=== PATIENT | female | born 1940 | race Caucasian/White ===

== ENCOUNTER 2018-11-18 07:49 | Day surgery (SDC) | payer MEDICARE, OTHER ==
[~2018-11-18 07:49] MED LIST: Bupivacaine 25%/EPINEPHrine/PF 30 ML ONE; Dexamethasone 4 MG/ML 5 ML MDV ONE; Ondansetron 4 MG/2 ML SDV ONE; Propofol 200 MG/20 ML SDV ONE; fentaNYL 100 MCG/2 ML SDV ONE
[2018-11-18] MEDS ORDERED: Bupivacaine 0.25%/EPINEPHrine 1:200,000 10 ML SDV INJECT ONE (08:00)
[2018-11-18] MEDS ORDERED: Lactated Ringers 1,000 ML IV SCH (08:00)
--- NOTE | 2018-11-18 08:51 | PCM.PREANE ---
Preanesthetic Assessment - Anesthesia/Transfusion/Family Hx Anesthesia History: Prior Anesthesia Without Reaction Family History of Anesthesia Reaction: No Transfusion History: No Prior Transfusion(s) Intubation History: Unknown - Review of Systems General: No Symptoms Pulmonary: No Symptoms Cardiovascular: No Symptoms Gastrointestinal: No Symptoms Neurological: No Symptoms Other: Reports: None - Physical Assessment Height: 1.55 m Weight: 71.214 kg ASA Class: 3 Mental Status: Alert & Oriented x3 Airway Class: Mallampati = 2 Dentition: Reports: Partial (upper) Thyro-Mental Finger Breadths: 3 Mouth Opening Finger Breadths: 2 ROM/Head Extension: Limited/Partial Lungs: Clear to Auscultation, Normal Respiratory Effort Cardiovascular: Irregular Rhythm - Allergies Allergies/Adverse Reactions: Allergies Allergy/AdvReac Type Severity Reaction Status Date / Time cephalexin [From Keflex] Allergy Itching Verified 11/13/18 11:30 doxycycline Allergy Itching Verified 11/13/18 11:30 Penicillins Allergy Itching Verified 11/13/18 11:30 Sulfa (Sulfonamide Allergy Stomach Verified 11/13/18 11:30 Antibiotics) Upset Tetracyclines Allergy Itching Verified 11/13/18 11:30 - Blood Blood Available: No - Anesthesia Plan Pre-Op Medication Ordered: None - Acknowledgements Anesthesia Type Planned: MAC Pt an Appropriate Candidate for the Planned Anesthesia: Yes Alternatives and Risks of Anesthesia Discussed w Pt/Guardian: Yes Pt/Guardian Understands and Agrees with Anesthesia Plan: Yes PreAnesthesia Questionnaire HEENT History: Reports: Allergic Rhinitis, Cataract Other HEENT History: top partial, reading glasses Cardiovascular History: Reports: Afib, Heart Failure, Heart Murmur (mitral valve rugurgitation, s/p aortic valve replacemant), High Cholesterol, Hypertension, Other (See Below) (h/o amaurosis fugax, h/o CHF) Respiratory History: Reports: Asthma, SOB (can't walk one block or one flight of stairs) Other Respiratory History: allergy induced asthma, does not have prescribed inhaler Gastrointestinal History: Reports: Chronic Diarrhea, GERD, Other (See Below) Other Gastrointestinal History: hx colitis Genitourinary History: Reports: Other (See Below) (chronic kidney insufficiency) 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: Musculoskeletal History: Reports: Back Pain, Chronic, Fracture, Gout, Neck Pain , Chronic, Osteoarthritis Other Musculoskeletal History: hx fx wrist Neurological History: Reports: Headaches, Chronic, Vertigo Psychiatric History: Reports: None Endocrine/Metabolic History: Reports: Hypothyroidism Oncologic (Cancer) History: Reports: None Dermatologic History: Reports: None - Infectious Disease History Infectious Disease History: Reports: None - Past Surgical History Head Surgeries/Procedures: Reports: None HEENT Surgical History: Reports: Tonsillectomy Cardiovascular Surgical History: Reports: Valve Replacement (aortic), Other ( See Below) (myotomy for congenital hypertrophic ventricular septum) Female Surgical History: Reports: Breast Biopsy, Hysterectomy Other Female Surgeries/Procedures: malia breast lumpectomy Oncologic Surgical History: Reports: Biopsy of Breast Dermatological Surgical History: Reports: Other (See Below) - SUBSTANCE USE Smoking Status *Q: Never Smoker Recreational Drug Use History: No - HOME MEDS Home Medications: Home Meds Cyanocobalamin (Vitamin B-12) [Vitamin B-12] 500 mcg PO DAILY 02/03/15 [History] Furosemide 20 mg PO ASDIRECTED 02/03/15 [History] Levothyroxine Sodium [Levoxyl] 37.5 mcg PO DAILY 02/03/15 [History] Magnesium Oxide 400 mg PO DAILY 02/03/15 [History] Metoprolol Tartrate 100 mg PO BID 02/03/15 [History] Potassium Bicarbonate [Klor-Con EF] 25 meq PO DAILY 02/03/15 [History] Pyridoxine HCl [Vitamin B-6] 100 mg PO DAILY 02/03/15 [History] Simvastatin [Zocor] 40 mg PO BEDTIME 02/03/15 [History] diphenhydrAMINE [Benadryl] 25 mg PO Q4H PRN 02/03/15 [History] hydrOXYzine HCl [hydrOXYzine] 25 mg PO BEDTIME PRN 02/03/15 [History] Allopurinol [Zyloprim] 300 mg PO DAILY 07/17/16 [History] Diltiazem HCl [Cartia Xt] 180 mg PO DAILY 11/13/18 [History] Osteo Advance 1 tab PO BID 11/13/18 [History] Warfarin [Coumadin] 2.5 mg PO ASDIRECTED 11/13/18 [History] - CURRENT (IN HOUSE) MEDS Current Meds: Current Medications Lactated Ringer's (Ringers, Lactated) 1,000 mls @ 125 mls/hr IV ASDIRECTED FANY Discontinued Medications Bupivacaine HCl/Epinephrine Bitart (Marcaine 0.25%/Epinephrine 1:200,000) 10 ml INJECT ONETIME ONE Stop: 11/18/18 08:01 Dexamethasone (Dexamethasone) Confirm Administered Dose 20 mg .ROUTE .STK-MED ONE Stop: 11/18/18 07:10 Fentanyl (Sublimaze) Confirm Administered Dose 100 mcg .ROUTE .STK-MED ONE Stop: 11/18/18 07:11 Lidocaine HCl (Xylocaine-Mpf 1%) Confirm Administered Dose 5 mls @ as directed .ROUTE .STK-MED ONE Stop: 11/18/18 07:10 Bupivacaine HCl/Epinephrine Bitart (Sensorc Mpf 0.25%-Epi 1:[id number]) Confirm Administered Dose 30 mls @ as directed .ROUTE .STK-MED ONE Stop: 11/18/18 07:39 Ondansetron HCl (Zofran) Confirm Administered Dose 4 mg .ROUTE .STK-MED ONE Stop: 11/18/18 07:10 Propofol (Diprivan 20 Ml) Confirm Administered Dose 200 mg .ROUTE .STK-MED ONE Stop: 11/18/18 07:11
[2018-11-18] MEDS ORDERED: Phenylephrine/Normal Saline 100 MCG/ML 10 ML Syringe ONE (09:31)
[2018-11-18 11:04] VITALS: BP 118/79
--- NOTE | 2018-11-18 11:18 | PCM.POSTAN ---
POST ANESTHESIA ASSESSMENT - MENTAL STATUS Mental Status: Alert (no anesthesia problems), Oriented - RESPIRATORY Respiratory Status: Respiratory Rate WNL, Airway Patent, O2 Saturation Stable - CARDIOVASCULAR CV Status: Pulse Rate WNL, Blood Pressure Stable - GASTROINTESTINAL GI Status: No Symptoms - POST OP HYDRATION Hydration Status: Adequate & Stable
--- NOTE | 2018-11-18 11:19 | PCM48HPAN ---
Post Anesthesia Note - EVALUATION WITHIN 48HRS OF ANESTHETIC Vital Signs in Normal Range: Yes Patient Participated in Evaluation: Yes Respiratory Function Stable: Yes Airway Patent: Yes Cardiovascular Function Stable: Yes Hydration Status Stable: Yes Pain Control Satisfactory: Yes Nausea and Vomiting Control Satisfactory: Yes Mental Status Recovered: Yes Resp Rate: 15 - COMMENTS/OBSERVATIONS Free Text/Narrative:: no anesthesia problems
--- NOTE | 2018-11-18 11:37 | PCM.OPNOTE ---
- General Post-Op/Procedure Note Date of Surgery/Procedure: 11/18/18 Operative Procedure(s): excision of right ear lesion and underlying cartilage 1.5cm total excision with frozen sections. Primary simple closure. Pre Op Diagnosis: right ear lesion Post-Op Diagnosis: right ear condrodermatitis nodularis helicus Anesthesia Technique: Local, MAC Primary Surgeon: Xochilt Mcfarland Lamp Mechanic: Karon Khan Complications: None Condition: Good
--- NOTE | 2018-11-23 13:15 | OR ---
SURGEON: JULIAN CARDOZA MD DATE OF PROCEDURE: 11/18/2018 PREOPERATIVE DIAGNOSIS: Right ear lesion. POSTOPERATIVE DIAGNOSIS: Right ear chondrodermatitis nodularis helicis. PROCEDURE: Excision of right ear lesion and underlying cartilage, 1.5 cm total excision with frozen sections. Primary simple closure. PRICE LISTER: LISA Camacho ANESTHESIA: Local MAC. INDICATIONS: Ms. Aleman is an 78-year-old female seen today in evaluation for a right ear lesion. Unfortunately, it continues to cause her significant pain. She does like to sleep on the right and is unable to do so because of pain. Risks and benefits of excision were discussed with her with frozen sections and she was in agreement to proceed. This was due to the differential diagnosis of skin cancer. Risks and benefits were discussed and informed consent was obtained. All questions were answered. PROCEDURE IN DETAIL: After informed consent was obtained and placed on the chart, the patient was brought to the operating theater and laid in supine position. After adequate local MAC anesthesia was obtained, the area was prepped and draped, a time-out was completed to confirm side and site. An elliptical wound excision of the right ear chondrodermatitis nodularis helicis was completed including the underlying cartilage. Meticulous hemostasis was obtained and the lesion was sent with marking stitch at 12 o'clock for frozen sections. Frozen sections returned as chondrodermatitis nodularis helicis most likely. Meticulous hemostasis was obtained and 5-0 chromic stitches were used to close the skin in interrupted fashion for a total length of 1.5 cm. The patient tolerated this well. All counts and needles were correct at the end of the case. FOLLOWUP INSTRUCTIONS: The patient will see us in clinic in 10 to 14 days, sooner with any problems, questions, or concerns. HEGGTNUPUR / SACHINL /[id number]
== END 2018-11-18 11:00 | disposition home or self-care (01) ==
LOC: MW.SDS 07:49
PROVIDERS: ATTEND Plastic Surgery
DX: H61.001 Unspecified perichondritis of right external ear (principal); I13.0 Hypertensive heart and chronic kidney disease with heart failure and stage 1 through stage 4 chronic kidney disease, or unspecified chronic kidney disease; I50.9 Heart failure, unspecified; N18.9 Chronic kidney disease, unspecified; J45.998 Other asthma; E78.00 Pure hypercholesterolemia, unspecified; E03.9 Hypothyroidism, unspecified; I48.91 Unspecified atrial fibrillation; Z79.01 Long term (current) use of anticoagulants; Z79.899 Other long term (current) drug therapy; Z88.1 Allergy status to other antibiotic agents; Z88.2 Allergy status to sulfonamides; Z88.0 Allergy status to penicillin
CPT/HCPCS: 11442; J1100; J2370; J2405; J2704; J3010; J7120; 00300; 88305

== ENCOUNTER 2021-10-29 10:44 | Emergency (ER) | payer MEDICARE, OTHER ==
[2021-10-29] MEDS ORDERED: Sodium Chloride 0.9% 10 ML Syringe FLUSH PRN (11:54)
[2021-10-29] MEDS ORDERED: Sodium Chloride 0.9% 2.5 ML Syringe FLUSH PRN (11:54)
[2021-10-29] MEDS ORDERED: Ketorolac 30 MG/ML SDV IVPUSH ONE (11:56)
[2021-10-29 12:38] LABS: CORONAVIRUS COVID-19 NAA NEGATIVE (NEGATIVE); INFLUENZA A NAA NEGATIVE (NEGATIVE); INFLUENZA B NAA NEGATIVE (NEGATIVE)
[2021-10-29 12:54] LABS: BLOOD UREA NITROGEN,BUN 24 mg/dL (7.0-18.0); CHLORIDE,CL 102 mmol/L (98-107); GLUCOSE RANDOM 101 mg/dL (74-106); POTASSIUM,K 3.8 mmol/L (3.5-5.1); SODIUM,NA 143 mmol/L (136-145)
--- NOTE | 2021-10-29 14:52 | CT ---
INDICATION: Shortness of breath. Pleuritic chest pain. TECHNIQUE: CT chest PE was acquired with 100 cc Isovue 370 IV contrast. COMPARISON: None. FINDINGS: Heart and vasculature: Contrast opacification of the pulmonary arterial tree is adequate. No sign of pulmonary embolism. Heart size is normal. Thoracic aorta and pulmonary artery are normal in caliber. Lungs and pleural: No suspicious nodules or infiltrates. Mild emphysema and bronchiectasis. No pleural effusions, pleural thickening, or pneumothorax. Lymph nodes/mediastinum: No mediastinal, hilar, or axillary adenopathy. Chest wall: No masses. Upper abdomen: No acute or significant findings. Bones: Unremarkable for age. IMPRESSION: No acute or specific finding to explain shortness of breath or pleuritic chest pain. Specifically no pulmonary embolism or pneumonia. Please note that all CT scans at this facility use dose modulation, iterative reconstruction, and/or weight-based dosing when appropriate to reduce radiation dose to as low as reasonably achievable. Dictated by Rodrigo Barber MD @ 10/29/2021 2:50:50 PM (Electronically Signed)
--- NOTE | 2021-10-29 15:11 | EDM.PDOC ---
ED HPI GENERAL MEDICAL PROBLEM - General Chief Complaint: General Stated Complaint: PAIN IN RIGHT RIB AREA Time Seen by Provider: 10/29/21 10:59 Source of Information: Reports: Patient History Limitations: Reports: No Limitations - History of Present Illness INITIAL COMMENTS - FREE TEXT/NARRATIVE: HISTORY AND PHYSICAL: History of present illness: Patient is an 81-year-old female who presents emergency room today with concern of right rib pain x2 days. Patient states that she once had a diagnosis of pleurisy and states that her pain today feels similar to when she had pleurisy. Patient states that it does worsen if she takes a big deep breath then. Patient states she has not had any falls or injuries or denies any other associated symptoms. States that she has been taking Tylenol with some relief of symptoms. Patient denies fever, chills, chest pain, shortness of breath, or cough. Denies headache, neck stiff ness, change in vision, syncope, or near syncope. Denies nausea, vomiting, abdominal pain, diarrhea, constipation, or dysuria. Has not noted any blood in urine or stool. Patient has been eating and drinking appropriately. Review of systems: As per history of present illness and below otherwise all systems reviewed and negative. Past medical history: As per history of present illness and as reviewed below otherwise noncontributory. Surgical history: As per history of present illness and as reviewed below otherwise noncontributory. Social history: See social history for further information Family history: As per history of present illness and as reviewed below otherwise noncontributory. Physical exam: General: Patient is alert, oriented, and in no acute distress. Patient sitting comfortably on exam table. Vitals stable and reviewed by me. HEENT: Atraumatic, normocephalic, pupils equal and reactive bilaterally, negative for conjunctival pallor or scleral icterus, mucous membranes moist, throat clear, neck supple, nontender, trachea midline. No drooling or trismus noted. No meningeal signs. No hot potato voice noted. Lungs: Clear to auscultation, breath sounds equal bilaterally, chest nontender. Heart: S1S2, regular rate and rhythm without overt murmur Abdomen: Soft, nondistended, nontender. Negative for masses or hepatosplenomegaly. Negative for costovertebral tenderness. Pelvis: Stable nontender. Genitourinary: Deferred. Rectal: Deferred. Skin: Intact, warm, dry. No lesions or rashes noted. Extremities/musculoskeletal: Pain to palpation of the right-sided rib cage extending under her right axillary area into the right flank with no ecchymosis, rash, lesion. Otherwise, atraumatic, negative for cords or calf pain. Neurovascular unremarkable. Neuro: Awake, alert, oriented. Cranial nerves II through XII unremarkable. Cerebellum unremarkable. Motor and sensory unremarkable throughout. Exam nonfocal. Medical Decision Making: Patient is an 81-year-old female who presents emergency room today with concern of right-sided rib pain x2 days that she describes as "lung pain". Upon arrival to the ED, patient is vitally stable and well-appearing on exam. Patient is noted to have tenderness to palpation of her right sided rib cage extending from her axillary area to around the flank without any other physical exam findings. Exam is otherwise unremarkable. Will obtain cardiac evaluation, angiography of chest for concern of possible pulmonary embolism. CBC mild derangements are unremarkable. CMP does show mild elevation of BUN and creatinine at 24 and 1.4 respectively. Troponin negative. Covid and influenza negative. Angiography of the chest shows no acute or specific findings to explain shortness of breath or pleuritic chest pain. Specifically no pulmonary embolism or pneumonia. Reevaluation of patient, she does remain vitally stable and has improvement of her symptoms with therapeutics given today in the emergency room. Strict return precautions thoroughly discussed with patient. Discussed importance for follow- up with a primary care provider. Voices understanding and is agreeable to plan of care. Denies any further questions or concerns at this time. Diagnostics: EKG, CBC, CMP, Trop, COVID/Flu, Ang CT Chest Therapeutics: Toradol Prescription: None Impression: Right rib pain Plan: 1. You can take Tylenol as directed for pain and discomfort. 2. Follow-up with your primary care provider in the next 1-3 days as discussed. Return to the ED as needed and as discussed. Definitive disposition and diagnosis as appropriate pending reevaluation and review of above. right rib Pain Score (Numeric/FACES): 10 - Related Data Allergies Allergy/AdvReac Type Severity Reaction Status Date / Time cephalexin [From Keflex] Allergy Itching Verified 10/29/21 11:06 doxycycline Allergy Itching Verified 10/29/21 11:06 Penicillins Allergy Itching Verified 10/29/21 11:06 Sulfa (Sulfonamide Allergy Stomach Verified 10/29/21 11:06 Antibiotics) Upset Tetracyclines Allergy Itching Verified 10/29/21 11:06 Home Meds: Home Meds Cyanocobalamin (Vitamin B-12) [Vitamin B-12] 500 mcg PO DAILY 02/03/15 [History] Furosemide 20 mg PO ASDIRECTED 02/03/15 [History] Levothyroxine Sodium [Levoxyl] 37.5 mcg PO DAILY 02/03/15 [History] Magnesium Oxide 400 mg PO DAILY 02/03/15 [History] Metoprolol Tartrate 100 mg PO BID 02/03/15 [History] Potassium Bicarbonate [Klor-Con EF] 25 meq PO DAILY 02/03/15 [History] Pyridoxine HCl (Vitamin B6) [Vitamin B-6] 100 mg PO DAILY 02/03/15 [History] Simvastatin [Zocor] 40 mg PO BEDTIME 02/03/15 [History] diphenhydrAMINE [Benadryl] 25 mg PO Q4H PRN 02/03/15 [History] hydrOXYzine HCL [hydrOXYzine] 25 mg PO BEDTIME PRN 02/03/15 [History] Allopurinol [Zyloprim] 300 mg PO DAILY 07/17/16 [History] Osteo Advance 1 tab PO BID 11/13/18 [History] Warfarin [Coumadin] 2.5 mg PO ASDIRECTED 11/13/18 [History] dilTIAZem HCL [Cartia Xt] 180 mg PO DAILY 11/13/18 [History] Past Medical History HEENT History: Reports: Allergic Rhinitis, Cataract Other HEENT History: top partial, reading glasses Cardiovascular History: Reports: Afib, Heart Failure, Heart Murmur, High Cholesterol, Hypertension, Other (See Below) Respiratory History: Reports: Asthma, SOB Other Respiratory History: allergy induced asthma, does not have prescribed inhaler Gastrointestinal History: Reports: Chronic Diarrhea, GERD, Other (See Below) Other Gastrointestinal History: hx colitis Genitourinary History: Reports: Other (See Below) 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: Musculoskeletal History: Reports: Back Pain, Chronic, Fracture, Gout, Neck Pain, Chronic, Osteoarthritis Other Musculoskeletal History: hx fx wrist Neurological History: Reports: Headaches, Chronic, Vertigo Psychiatric History: Reports: None Endocrine/Metabolic History: Reports: Hypothyroidism Oncologic (Cancer) History: Reports: None Dermatologic History: Reports: None - Infectious Disease History Infectious Disease History: Reports: None - Past Surgical History Head Surgeries/Procedures: Reports: None HEENT Surgical History: Reports: Tonsillectomy Cardiovascular Surgical History: Reports: Valve Replacement, Other (See Below) Female Surgical History: Reports: Breast Biopsy, Hysterectomy Other Female Surgeries/Procedures: malia breast lumpectomy Oncologic Surgical History: Reports: Biopsy of Breast Dermatological Surgical History: Reports: Other (See Below) Social & Family History - Family History Family Medical History: No Pertinent Family History - Caffeine Use Caffeine Use: Reports: None - Recreational Drug Use Recreational Drug Use: No ED ROS GENERAL - Review of Systems Review Of Systems: Comprehensive ROS is negative, except as noted in HPI. ED EXAM, GENERAL - Physical Exam Exam: See Below (see dictation) Course - Vital Signs Last Recorded V/S: Last Vital Signs Temp 97.9 F 10/29/21 15:19 Pulse 78 10/29/21 15:19 Resp 17 10/29/21 15:19 BP 159/78 H 10/29/21 15:19 Pulse Ox 96 10/29/21 15:19 - Orders/Labs/Meds Orders: Active Orders 24 hr Category Date Time Status Saline Lock Insert [OM.PC] Stat Oth 10/29/21 11:54 Ordered Labs: Laboratory Tests 10/29/21 10/29/21 10/29/21 Range/Units 11:45 12:05 12:05 WBC 9.37 (4.0-11.0) K/uL RBC 4.45 (4.30-5.90) M/uL Hgb 13.7 (12.0-16.0) g/dL Hct 41.7 (36.0-46.0) % MCV 93.7 (80.0-98.0) fL MCH 30.8 (27.0-32.0) pg MCHC 32.9 (31.0-37.0) g/dL RDW Std Deviation 49.2 (28.0-62.0) fl RDW Coeff of Haris 15 (11.0-15.0) % Plt Count 217 (150-400) K/uL MPV 10.20 (7.40-12.00) fL Neut % (Auto) 66.6 (48.0-80.0) % Lymph % (Auto) 22.3 (16.0-40.0) % [place] % (Auto) 7.2 (0.0-15.0) % Eos % (Auto) 3.5 (0.0-7.0) % Baso % (Auto) 0.4 (0.0-1.5) % Neut # (Auto) 6.2 H (1.4-5.7) K/uL Lymph # (Auto) 2.1 (0.6-2.4) K/uL [place] # (Auto) 0.7 (0.0-0.8) K/uL Eos # (Auto) 0.3 (0.0-0.7) K/uL Baso # (Auto) 0.0 (0.0-0.1) K/uL Nucleated RBC % 0.0 /100WBC Nucleated RBCs # 0 K/uL Sodium 143 (136-145) mmol/L Potassium 3.8 (3.5-5.1) mmol/L Chloride 102 (98-107) mmol/L Carbon Dioxide 28.0 (21.0-32.0) mmol/L BUN 24 H (7.0-18.0) mg/dL Creatinine 1.4 H (0.6-1.0) mg/dL Est Cr Clr Drug Dosing 25.19 mL/min Estimated GFR (MDRD) 35.9 ml/min Glucose 101 (74-106) mg/dL Calcium 9.6 (8.5-10.1) mg/dL Total Bilirubin 0.3 (0.2-1.0) mg/dL AST 28 (15-37) IU/L ALT 27 (14-63) IU/L Alkaline Phosphatase 115 (46-116) U/L Troponin I < 0.050 (0.000-0.056) ng/mL Total Protein 8.4 H (6.4-8.2) g/dL Albumin 4.2 (3.4-5.0) g/dL Globulin 4.2 H (2.6-4.0) g/dL Albumin/Globulin Ratio 1.0 (0.9-1.6) Influenza Type A RNA NEGATIVE (NEGATIVE) Influenza Type B RNA NEGATIVE (NEGATIVE) SARS-CoV-2 RNA (SOFIA) NEGATIVE (NEGATIVE) Meds: Medications Discontinued Medications Generic Name Dose Route Start Last Admin Trade Name Freq PRN Reason Stop Dose Admin Ketorolac Tromethamine 15 mg 10/29/21 11:56 10/29/21 11:59 Ketorolac 30 Mg/Ml Sdv IVPUSH 10/29/21 11:57 15 mg ONETIME ONE Administration Sodium Chloride 10 ml 10/29/21 11:54 10/29/21 12:13 Sodium Chloride 0.9% 10 Ml Syringe FLUSH 10 ml ASDIRECTED PRN Administration Keep Vein Open Sodium Chloride 2.5 ml 10/29/21 11:54 10/29/21 12:12 Sodium Chloride 0.9% 2.5 Ml Syringe FLUSH 2.5 ml ASDIRECTED PRN Administration Keep Vein Open Departure - Departure Time of Disposition: 15:10 Disposition: Home, Self-Care 01 Clinical Impression: Rib pain on right side - Discharge Information Instructions: Chest Wall Pain, Nkei-jf-Urde Referrals: Matt Berry MD [Primary Care Provider] - Forms: ED Department Discharge Additional Instructions: The following information is given to patients seen in the emergency department who are being discharged to home. This information is to outline your options for follow-up care. We provide all patients seen in our emergency department with a follow-up referral. The need for follow-up, as well as the timing and circumstances, are variable depending upon the specifics of your emergency department visit. If you don't have a primary care physician on staff, we will provide you with a referral. We always advise you to contact your personal physician following an emergency department visit to inform them of the circumstance of the visit and for follow-up with them and/or the need for any referrals to a consulting specialist. The emergency department will also refer you to a specialist when appropriate. This referral assures that you have the opportunity for follow-up care with a specialist. All of these measure are taken in an effort to provide you with optimal care, which includes your follow-up. Under all circumstances we always encourage you to contact your private physician who remains a resource for coordinating your care. When calling for f ollow-up care, please make the office aware that this follow-up is from your recent emergency room visit. If for any reason you are refused follow-up, please contact the [facility] Emergency Department at and asked to speak to the emergency department charge nurse. NANCY Chi [facility] [address] [place] [address] [facility] [address] [place] [address] 1. You can take Tylenol as directed for pain and discomfort. 2. Follow-up with your primary care provider in the next 1-3 days as discussed. Return to the ED as needed and as discussed. Sepsis Event Note (ED) - Evaluation Sepsis Screening Result: No Definite Risk - Focused Exam Vital Signs: Vital Signs Temp Pulse Resp BP Pulse Ox 10/29/21 15:19 97.9 F 78 17 159/78 H 96 10/29/21 14:53 96 137/76 97 10/29/21 12:13 70 16 107/70 97 10/29/21 11:07 98.4 F 79 18 100/76 98 - My Orders Last 24 Hours: My Active Orders 10/29/21 11:54 Saline Lock Insert [OM.PC] Stat - Assessment/Plan Last 24 Hours: My Active Orders 10/29/21 11:54 Saline Lock Insert [OM.PC] Stat
[2021-10-29 15:20] VITALS: BP 159/78; PULSE 78
--- NOTE | 2021-10-30 07:58 | PCM.EKG ---
#1 Interpretation EKG Date: 10/29/21 Time: 12:16 Rhythm: A-Fib Rate (Beats/Min): 98 [place]: Normal P-Wave: Absent QRS: LBBB ST-T: Normal QT: Normal Comparison: No Change (08/11/18) EKG Interpretation Comments: Atrial Fibrillation with LBBB
== END 2021-10-29 15:20 | disposition home or self-care (01) ==
LOC: MW.ED 10:44
DX: R07.81 Pleurodynia (principal); E78.00 Pure hypercholesterolemia, unspecified; I11.0 Hypertensive heart disease with heart failure; I50.9 Heart failure, unspecified; E03.9 Hypothyroidism, unspecified; M10.9 Gout, unspecified; M19.90 Unspecified osteoarthritis, unspecified site; I48.91 Unspecified atrial fibrillation; Z88.1 Allergy status to other antibiotic agents; Z88.2 Allergy status to sulfonamides; Z88.0 Allergy status to penicillin; Z79.899 Other long term (current) drug therapy; Z20.822 Contact with and (suspected) exposure to COVID-19
CPT/HCPCS: 0240U; 36415; 71275; 80053; 84484; 85025; 93005; 96374; 99284; J1885